=== PATIENT | male | born 1985 ===

== ENCOUNTER 2016-11-11 20:40 | Emergency (ER) | payer MEDICAID ==
[2016-11-11 20:40] VITALS: BMI 26.6
[2016-11-11 21:23] VITALS: BP 112/62; PULSE 69; RESP 18; TEMP 98.4; O2SAT 98
--- NOTE | 2016-11-11 21:33 | ED PDOC ---
Arrival/HPI - General Chief Complaint: Finger,Hand,&Wrist Time Seen by Provider: 11/11/16 21:29 Historian: Patient - History of Present Illness Narrative History of Present Illness (Text): 11/11/16 21:31 31 y/o male, pmh including old 5th metacarpal base fracture, penicillin allergy , c/o rt. hand injury and pain x 1 day. Pt. stated that the window accidentally on the rt. hand, aching pain, aggravated by movement, no numbness or tingling, no dizziness, no rash, no other medical or psychological complaints. Past Medical History - Provider Review Nursing Documentation Reviewed: Yes - Cardiac Hx Cardiac Disorders: No - Pulmonary Hx Respiratory Disorders: Yes Hx Asthma: Yes - Neurological Hx Neurological Disorder: No - HEENT Hx HEENT Disorder: No - Renal Hx Renal Disorder: No - Endocrine/Metabolic Hx Endocrine Disorders: No - Hematological/Oncological Hx Blood Disorders: No - Integumentary Hx Dermatological Disorder: No - Musculoskeletal/Rheumatological Hx Musculoskeletal Disorders: No - Gastrointestinal Hx Gastrointestinal Disorders: No - Genitourinary/Gynecological Hx Genitourinary Disorders: No - Psychiatric Hx Psychophysiologic Disorder: No Hx Substance Use: No Family/Social History - Physician Review Nursing Documentation Reviewed: Yes Family/Social History: Unknown Family HX Smoking Status: Never Smoked Hx Alcohol Use: No Hx Substance Use: No Allergies/Home Meds Allergies/Adverse Reactions: Allergies Penicillins Allergy (Verified 06/11/16 14:48) ANAPHYLAXIS Review of Systems - Review of Systems Constitutional: absent: Fatigue, Fevers Eyes: absent: Vision Changes ENT: absent: Hearing Changes Respiratory: absent: SOB, Cough Cardiovascular: absent: Chest Pain Gastrointestinal: absent: Abdominal Pain, Diarrhea, Nausea, Vomiting Musculoskeletal: Arthralgias, Myalgias. absent: Back Pain, Neck Pain, Joint Swelling Skin: absent: Rash, Pruritis, Skin Lesions, Laceration, Abscess, Ulcer, Cellulitis Neurological: absent: Headache, Dizziness, Focal Weakness, Gait Changes Physical Exam Vital Signs Reviewed: Yes Vital Signs Temp Pulse Resp BP Pulse Ox 11/11/16 21:19 98.4 F 69 18 112/62 98 Temperature: Afebrile Blood Pressure: Normal Pulse: Regular Respiratory Rate: Normal Appearance: Positive for: Well-Appearing, Non-Toxic, Comfortable Pain Distress: Mild Mental Status: Positive for: Alert and Oriented X 3 - Systems Exam Head: Present: Atraumatic, Normocephalic Pupils: Present: PERRL Extroacular Muscles: Present: EOMI Conjunctiva: Present: Normal Mouth: Present: Moist Mucous Membranes Neck: Present: Normal Range of Motion Respiratory/Chest: Present: Clear to Auscultation, Good Air Exchange. No: Respiratory Distress, Accessory Muscle Use Cardiovascular: Present: Regular Rate and Rhythm, Normal S1, S2. No: Murmurs Abdomen: Present: Normal Bowel Sounds. No: Tenderness, Distention, Peritoneal Signs Back: Present: Normal Inspection Upper Extremity: Present: Normal Inspection, Other (Rt. hand: +ttp and ecchymosis on the rt. hand 4th and 5th metacarpal region, skin intact, no laceration or abrasion, FROM without limitation, sensation intact, motor 5/5, neurovascular intact. ). No: Cyanosis, Edema Lower Extremity: Present: Normal Inspection. No: Edema Neurological: Present: GCS=15, Speech Normal, Motor Func Grossly Intact, Gait Normal, Memory Normal Skin: Present: Warm, Dry, Normal Color. No: Rashes Psychiatric: Present: Alert, Oriented x 3, Normal Insight, Normal Concentration Medical Decision Making ED Course and Treatment: 11/11/16 21:33 -rt. hand xray -motrin/percocet -ulnar gutter splint applied with neurovascular intact. -Discharge home with ibuprofen, ulnar gutter splint, sling, ice compression, avoid strenuous exercise or activity, follow up with your own pmd and hand specialist/orthopedic within 2 days, return to the ER for any new or worsening signs or symptoms. - RAD Interpretation Radiology Orders: 11/11/16 21:31 HAND RIGHT 3 VIEWS [RAD] Stat old displaced fracture on the base of the 5th metacarpal Engineer Intern: Radiologist - Medication Orders Current Medication Orders: Discontinued Medications Ibuprofen (Motrin Tab) 600 mg PO STAT STA Stop: 11/11/16 22:20 Last Admin: 11/11/16 22:51 Dose: 600 mg Oxycodone/Acetaminophen (Percocet 5/325 Mg Tab) 1 tab PO STAT STA Stop: 11/11/16 22:20 Last Admin: 11/11/16 22:51 Dose: 1 tab - PA / PUBLIC HEALTH INFORMATICIAN / Resident Statement MD/DO has reviewed & agrees with the documentation as recorded. Disposition/Present on Arrival - Present on Arrival Any Indicators Present on Arrival: No History of DVT/PE: No History of Uncontrolled Diabetes: No Urinary Catheter: No History of Decub. Ulcer: No History Surgical Site Infection Following: None - Disposition Have Diagnosis and Disposition been Completed?: Yes Diagnosis: Hand injury, Hand pain, Hand contusion Disposition: HOME/ ROUTINE Disposition Time: 21:33 Patient Plan: Discharge Condition: IMPROVED Additional Instructions: Discharge home with ibuprofen, ulnar gutter splint, sling, ice compression, avoid strenuous exercise or activity, follow up with your own pmd and hand specialist/orthopedic within 2 days, return to the ER for any new or worsening signs or symptoms. Prescriptions: Ibuprofen [Motrin Tab] 600 mg PO QID PRN #[id number] tab PRN Reason: Other Referrals: Mona Fernando MD [Primary Care Provider] - Follow up with primary [facility] [place] [Outside] - Follow up with primary Juan R Selby III, MD [Medical Doctor] - Follow up with primary Forms: WORK NOTE
[2016-11-11] MEDS ORDERED: Oxycodone/Acetaminophen 5/325 mg Tab PO STA (22:19)
--- NOTE | 2016-11-12 07:55 | RAD ---
PROCEDURE: Right Hand Radiographs. HISTORY: rt. hand injury and pain COMPARISON: 06/11/2016 FINDINGS: BONES: There is an old displaced fracture of the base of the 5th metacarpal that is still visible. JOINTS: Normal. No osteoarthritic changes. SOFT TISSUES: Normal. OTHER FINDINGS: None. IMPRESSION: There is an old displaced fracture of the base of the 5th metacarpal that is still visible.
== END 2016-11-11 22:56 | disposition home or self-care (01) ==
LOC: ED 20:40
DX: S69.91XA Unspecified injury of right wrist, hand and finger(s), initial encounter (principal); S60.221A Contusion of right hand, initial encounter; X58.XXXA Exposure to other specified factors, initial encounter; Z88.0 Allergy status to penicillin